=== PATIENT | male | born 1950 | race Caucasian/White ===

== ENCOUNTER → 2016-09-14 | Outpatient (CLI) | payer BC | LOC: FIMAGING 10:36 | PROVIDERS: ATTEND Radiology Diagnostic Radiology | DX: L97.821 Non-pressure chronic ulcer of other part of left lower leg limited to breakdown of skin (principal); L97.811 Non-pressure chronic ulcer of other part of right lower leg limited to breakdown of skin; L03.115 Cellulitis of right lower limb; L03.116 Cellulitis of left lower limb; R60.0 Localized edema ==

== ENCOUNTER 2016-11-01 07:22 | Day surgery (SDC) | payer BC ==
[2016-11-01] MEDS ORDERED: SODIUM TETRADECYL SULFATE 60 MG/2 ML VIAL IV ONE ×2 (08:04→08:19)
[2016-11-01] MEDS ORDERED: LIDO/EPI 1% **for epidural** 30 ML SDV ONE (08:04)
[2016-11-01] MEDS ORDERED: MIDAZOLAM 2 MG/2 ML VIAL ONE (09:30)
[2016-11-01] MEDS ORDERED: fentaNYL 100 MCG/2 ML INJ ONE (09:30)
[2016-11-01] MEDS ORDERED: NS 1,000 ML IV ONE (10:31)
[2016-11-01] MEDS ORDERED: ONDANSETRON 4 MG/2 ML VIAL IVP ONE (10:31)
[2016-11-01] MEDS ORDERED: ceFAZolin 2 GM/DEXTROSE 100 ML IV ONE (10:31)
[2016-11-01] MEDS ORDERED: HYDROCODONE/APAP 5/325 TAB PO PRN (11:00)
[2016-11-01] MEDS ORDERED: NS 1,000 ML IV SCH (11:00)
[2016-11-01] MEDS ORDERED: ONDANSETRON DISINTEGRATING 4 MG TAB PO PRN (11:00)
[2016-11-01] MEDS ORDERED: ONDANSETRON 4 MG/2 ML VIAL IVP PRN (11:00)
[2016-11-01] MEDS ORDERED: IBUPROFEN 200 MG TAB PO ONE (11:00)
== END 2016-11-01 11:20 | disposition home or self-care (01) ==
LOC: FIMAGING 07:22
PROVIDERS: ATTEND Radiology Diagnostic Radiology
PROC: 065P3ZZ Destruction of Right Saphenous Vein, Percutaneous Approach (ICD-10-PCS; principal; 2016-11-01 10:40)
DX: I83.019 Varicose veins of right lower extremity with ulcer of unspecified site (principal); I83.029 Varicose veins of left lower extremity with ulcer of unspecified site; L03.115 Cellulitis of right lower limb; L03.116 Cellulitis of left lower limb
CPT/HCPCS: J0690; J2250; J3010

== ENCOUNTER 2016-11-02 07:25 | Day surgery (SDC) | payer BC ==
[2016-11-02] MEDS ORDERED: SODIUM TETRADECYL SULFATE 60 MG/2 ML VIAL IV ONE (07:54)
[2016-11-02] MEDS ORDERED: LIDO/EPI 1% **for epidural** 30 ML SDV ONE (07:55)
[2016-11-02] MEDS ORDERED: fentaNYL 100 MCG/2 ML INJ ONE (08:47)
[2016-11-02] MEDS ORDERED: MIDAZOLAM 2 MG/2 ML VIAL ONE (08:48)
[2016-11-02] MEDS ORDERED: HYDROCODONE/APAP 5/325 TAB PO PRN (11:03)
[2016-11-02] MEDS ORDERED: ONDANSETRON DISINTEGRATING 4 MG TAB PO PRN (11:04)
[2016-11-02] MEDS ORDERED: ONDANSETRON 4 MG/2 ML VIAL IVP PRN (11:05)
[2016-11-02] MEDS ORDERED: IBUPROFEN 200 MG TAB PO ONE (11:30)
== END 2016-11-02 11:55 | disposition home or self-care (01) ==
LOC: FIMAGING 07:25
PROVIDERS: ATTEND Radiology Diagnostic Radiology
PROC: 065Q3ZZ Destruction of Left Saphenous Vein, Percutaneous Approach (ICD-10-PCS; principal; 2016-11-02 10:42)
DX: I83.209 Varicose veins of unspecified lower extremity with both ulcer of unspecified site and inflammation (principal)
CPT/HCPCS: 36470; 36473; 99152; 99153; C1758; C1769; J1644; J2250; J3010

== ENCOUNTER → 2017-07-12 | Outpatient (CLI) | payer BC ==
[~2017-07-12] MED LIST: IOPAMIDOL (ISOVUE 370) 100 ML BTL IV ONE
== END ==
LOC: CIMAGING 14:36
PROVIDERS: ATTEND Family Medicine
DX: I71.4 Abdominal aortic aneurysm, without rupture (principal); I74.3 Embolism and thrombosis of arteries of the lower extremities; R79.89 Other specified abnormal findings of blood chemistry
CPT/HCPCS: 75635-PO; Q9967

== ENCOUNTER 2017-09-09 06:47 | Inpatient (IN) | payer OTHER, BC ==
[2017-09-09] MEDS ORDERED: BUPIVACAINE 0.5% 30 ML SDV ONE (07:32)
[2017-09-09] MEDS ORDERED: THROMBIN (BOVINE) 20,000 UNIT VIAL TP ONE (07:32)
[2017-09-09] MEDS ORDERED: LR 1,000 ML IV ONE ×2 (07:33→08:04)
[2017-09-09] MEDS ORDERED: LIDOCAINE 1% 2 ML INJ ONE (08:02)
[2017-09-09] MEDS ORDERED: ALTEPLASE 2 MG VIAL IVP PRN (08:04)
[2017-09-09] MEDS ORDERED: GLUCAGON HCL 1 MG VIAL IVP PRN (08:04)
[2017-09-09] MEDS ORDERED: MIDAZOLAM 2 MG/2 ML VIAL IVP PRN (08:04)
[2017-09-09] MEDS ORDERED: HEPARIN 10,000 UNIT/10 ML MDV (1,000 UNIT/ML) IVP PRN (08:04)
[2017-09-09] MEDS ORDERED: NALOXONE HCL 0.4 MG/ML INJ IVP PRN ×2 (08:04→12:05)
[2017-09-09] MEDS ORDERED: ceFAZolin 2 GM/SWFI 2 GM/20 ML SYR IVP ONE (08:04)
[2017-09-09] MEDS ORDERED: MEPERIDINE 25 MG/ML SYR IVP PRN (08:04)
[2017-09-09] MEDS ORDERED: FLUMAZENIL 0.5 MG/5 ML MDV IVP PRN (08:04)
[2017-09-09] MEDS ORDERED: fentaNYL 100 MCG/2 ML INJ IVP PRN ×2 (08:04→12:05)
[2017-09-09] MEDS ORDERED: PROTAMINE SULFATE 50 MG/5 ML VIAL IVP PRN (08:04)
[2017-09-09] MEDS ORDERED: IOPAMIDOL (ISOVUE-300) 100 ML BTL ONE ×2 (08:15→11:40)
--- NOTE | 2017-09-09 08:53 | PDGENHP ---
History & Physical Chief Complaint: AAA History of Present Illness: ENLARGING AAA. NON-RUPTURE. Pertinent Past, Social, Family History: VENOUS HYPERTENSION, HLD, HTN Relevant Physical Exam: NOT IN DISTRESS. NO CHANGE FROM PREVIOUS VISIT. Cardiorespiratory Assessment: RRR, CTA
[2017-09-09 09:15] LABS: INR 0.91 (0.83-1.16); PROTIME(PATIENT) 12.5 SEC (12.0-15.0)
[2017-09-09] MEDS ORDERED: MIDAZOLAM 2 MG/2 ML VIAL IVP ONE (09:19)
--- NOTE | 2017-09-09 09:19 | PDANEPAE ---
ANE History of Present Illness AAA for endovascular repair ANE Past Medical History - Cardiovascular History Hx Hypertension: Yes Hx Arrhythmias: No Hx Chest Pain: No Hx Coronary Artery / Peripheral Vascular Disease: Yes Hx CHF / Valvular Disease: No Hx Palpitations: No Cardiovascular History Comment: hyperlipidemia. venous htn to ble. AAA - Pulmonary History Hx COPD: No Hx Asthma/Reactive Airway Disease: No Hx Recent Upper Respiratory Infection: No Hx Oxygen in Use at Home: No Hx Sleep Apnea: No Sleep Apnea Screening Result - Last Documented: Positive Pulmonary History Comment: agata triggers - Neurologic History Hx Cerebrovascular Accident: No Hx Seizures: No Hx Dementia: No Neurologic History Comment: found AAA on MRI when he went in for back pain. 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 creat was high so he was unable to have iodine - Liver History Hx Hepatic Disorders: No - Neurological & Psychiatric Hx Hx Neurological and Psychiatric Disorders: No - Cancer History Hx Cancer: No - Congenital Disorder History Hx Congenital Disorders: No - GI History GERD: moderate Hx Gastrointestinal Disorders: Yes Gastrointestinal History Comment: occ reflux- uses nexium - Other Health History Other Health History: redness to ble from past cellulitis - Chronic Pain History Chronic Pain: Yes (back pain) - Surgical History Prior Surgeries: right knee replacement. right ankle replacement. bilateral carpel tunnel. RTC bilateral shoulders ANE Review of Systems Review of systems is: negative Review of Systems: - Exercise capacity METS (RN): 4 METS ANE Patient History - Allergies Allergies/Adverse Reactions: No Known Allergies Allergy (Verified 09/06/17 15:51) - Home Medications Home medications: home medication list seen and reviewed Home Medications: Celebrex 10/26/16 [Last Taken Unknown] Lasix 10/26/16 [Last Taken Unknown] Lipitor 10/26/16 [Last Taken Unknown] Nexium PRN 10/26/16 [Last Taken Unknown] - NPO status NPO Since - Liquids (Date): 09/08/17 NPO Since - Solids (Date): 09/08/17 - Anes Hx Anes Hx: no prior problems - Smoking Hx Smoking Status: Former smoker ANE Labs/Vital Signs - Labs Result Diagrams: 09/09/17 08:10 09/09/17 08:10 - Vital Signs Height: 167.64 cm Weight: 108.862 kg ANE Physical Exam - Airway Neck exam: FROM Mallampati Score: Class 1 Mouth exam: normal dental/mouth exam - Pulmonary Pulmonary: no respiratory distress - Cardiovascular Cardiovascular: regular rate and rhythym - ASA Status ASA Status: III ANE Anesthesia Plan Anesthesia Plan: general endotracheal anesthesia Lines/Monitors: arterial line Specialized Airway: video laryngoscope
[2017-09-09] MEDS ORDERED: PROPOFOL 200 MG/20 ML VIAL ONE ×2 (09:21)
[2017-09-09] MEDS ORDERED: fentaNYL 250 MCG/5 ML INJ ONE (09:21)
[2017-09-09] MEDS ORDERED: LIDOCAINE 2% 5 ML SDV ONE (09:26)
[2017-09-09] MEDS ORDERED: PHENYLEPHRINE 10 MG/ML SDV ONE (09:27)
[2017-09-09 10:43] LABS: PLATELET COUNT 183 10^3/uL (150-400)
[2017-09-09] MEDS ORDERED: LIDOCAINE 2% 100 MG/5 ML SYR ONE (11:59)
[2017-09-09] MEDS ORDERED: ONDANSETRON 4 MG/2 ML VIAL ONE (11:59)
[2017-09-09] MEDS ORDERED: SUGAMMADEX SODIUM 200 MG/2 ML VIAL IVP ONE (11:59)
[2017-09-09] MEDS ORDERED: ROCURONIUM 100 MG/10 ML VIAL ONE (11:59)
[2017-09-09] MEDS ORDERED: HYDROCODONE/APAP 5/325 TAB PO PRN (12:05)
[2017-09-09] MEDS ORDERED: LR 500 ML IV PRN (12:05)
[2017-09-09] MEDS ORDERED: OXYCODONE/APAP 5/325 TAB PO PRN (12:05)
[2017-09-09] MEDS ORDERED: PHENYLEPHRINE HCL 100 MCG/ML SYR IVP PRN (12:05)
[2017-09-09] MEDS ORDERED: ALBUTEROL 3 ML DEYVIAL IH PRN (12:05)
[2017-09-09] MEDS ORDERED: ONDANSETRON 4 MG/2 ML VIAL IVP PRN ×2 (12:05→13:35)
[2017-09-09] MEDS ORDERED: HYDROmorphONE/DILAUDID 1 MG/ML INJ IVP PRN (12:05)
[2017-09-09] MEDS ORDERED: ACETAMINOPHEN 500 MG TAB PO PRN (12:05)
[2017-09-09] MEDS ORDERED: PROMETHAZINE HCL 25 MG/ML INJ IVP PRN (12:05)
[2017-09-09] MEDS ORDERED: DEXAMETHASONE 4 MG/ML VIAL IVP PRN (12:05)
[2017-09-09] MEDS ORDERED: LABETALOL HCL 5 MG/ML 20 ML MDV IVP PRN (12:05)
--- NOTE | 2017-09-09 12:05 | POSTANESTH ---
Post Anesthetic Evaluation Cardiovascular Status: Normal, Stable Respiratory Status: Normal, Stable Level of Consciousness/Mental Status: Can Participate in Eval Pain Control: Adequate, Prn Tx Ordered Nausea/Vomiting Control: Adequate, Prn Tx Ordered Complications Possibly Related to Anesthesia: None Noted
[2017-09-09] MEDS: OXYCODONE/APAP 5/325 TAB PO PRN ×2 (14:15→20:56)
--- NOTE | 2017-09-09 14:54 | PDRADPN ---
Radiology Procedure Note Date of Procedure: 09/09/17 Radiologist: Carol Mcneil Anesthesia: GET(General Endotracheal) Pre-op Diagnosis: AAA Post-op Diagnosis: SAME Indication: ENLARGING AAA Procedure: ENDOVASCULAR STENTGRAFT REAPIR Finding(s): THREE PIECE STENTGRAFT PLACED. AAA EXCLUDED. Inf/Abcess present in the surg proc area at time of surgery?: No Complications: NONE IMMEDIATELY. Drains: Other (RT 7FR ARTERIAL SHEATH SUTURED IN PLACE.)
[2017-09-09] MEDS ORDERED: ALBUTEROL 3 ML DEYVIAL ONE (16:00)
[2017-09-09 16:19] VITALS: TEMP 98.1
--- NOTE | 2017-09-09 19:45 | SOAPPROG ---
STEFANIE Progress Note Assessment/Plan: Assessment: Doing well post perc AAA stentgraft repair. Plan: 1. Keep [place] tonight 2. Start to sit up slowly tonight. Goal is in chair tomorrow am. 3. Anticipate D/C [place] in am. 09/09/17 19:44 Subjective: No complaints Objective: Vital Signs Temp Pulse Resp BP Pulse Ox 36.7 C 80 20 122/65 H 94 09/09/17 16:00 09/09/17 18:00 09/09/17 18:00 09/09/17 18:00 09/09/17 18:00 Laboratory Results 09/09/17 10:24 09/09/17 08:10 09/08/17 09/09/17 09/10/17 05:59 05:59 05:59 Intake Total 2130 Output Total 1080 Balance 1050 PT 12.5 SEC (12.0-15.0) 09/09/17 08:10 INR 0.91 (0.83-1.16) 09/09/17 08:10 No hematoma at femoral accesses. Palpable pedal pulses. ICD10 Worksheet Patient Problems: Problems Problem Status Onset AAA (abdominal aortic aneurysm) without rupture Acute - ICD10 Problem Qualifiers (1) AAA (abdominal aortic aneurysm) without rupture
[2017-09-09] MEDS: ROSUVASTATIN CALCIUM 40 MG TAB PO SCH (20:55)
[2017-09-09] MEDS: LISINOPRIL 20 MG TAB PO SCH (20:55)
[2017-09-09] MEDS: METOPROLOL SUCCINATE XR 25 MG TAB PO SCH (20:56)
[2017-09-10 05:57] LABS: PLATELET COUNT 189 10^3/uL (150-400)
[2017-09-10] MEDS ORDERED: FUROSEMIDE 20 MG TAB PO SCH (09:00)
[2017-09-10] MEDS: ROSUVASTATIN CALCIUM 40 MG TAB PO SCH (09:26)
[2017-09-10] MEDS: LISINOPRIL 20 MG TAB PO SCH (09:26)
[2017-09-10] MEDS: METOPROLOL SUCCINATE XR 25 MG TAB PO SCH (09:44)
--- NOTE | 2017-09-10 09:44 | SOAPPROG ---
SOAP Progress Note Assessment/Plan: Assessment: Doing well post perc AAA stentgraft repair. Plan: 1. Keep [place] tonight 2. Start to sit up slowly tonight. Goal is in chair tomorrow am. 3. Anticipate D/C [place] in am. 09/09/17 19:44 09/10/17 09:43 D/C [place]. May D/C home once able to urinate. IR will call patient for CTA follow up in next 3-6 months. This was discussed with patient. Subjective: Sitting in chair. No complaints. Objective: Vital Signs Temp Pulse Resp BP Pulse Ox 36.7 C 50 L 17 92/49 L 97 09/09/17 16:00 09/10/17 06:00 09/10/17 06:00 09/10/17 06:00 09/10/17 06:00 Laboratory Results 09/10/17 05:30 09/09/17 08:10 09/09/17 09/10/17 09/11/17 05:59 05:59 05:59 Intake Total 2380 Output Total 1730 Balance 650 PT 12.5 SEC (12.0-15.0) 09/09/17 08:10 INR 0.91 (0.83-1.16) 09/09/17 08:10 Dressings changed. No hematoma. Pulses stable. Abd NT - Pending Discharge Pending Discharge Within 24 Hours: Yes Pending Discharge Date: 09/11/17 Pending Discharge Time: 11:00 ICD10 Worksheet Patient Problems: Problems Problem Status Onset AAA (abdominal aortic aneurysm) without rupture Acute - ICD10 Problem Qualifiers (1) AAA (abdominal aortic aneurysm) without rupture
[2017-09-10] MEDS ORDERED: PNEUMOC 13-VAL CONJ-DIP CRM/PF 0.5 ML SYR IM ONE ×2 (09:48→13:30)
[2017-09-10 12:57] VITALS: BP 105/49; PULSE 57; RESP 18; O2SAT 94
== END 2017-09-10 14:29 | disposition home or self-care (01) | DRG 269 ==
LOC: FIMAGING 06:47 → F2N 12:40 → OBSVTOIN 13:35
PROVIDERS: ADMIT Radiology Diagnostic Radiology; ATTEND Radiology Diagnostic Radiology
PROC: 04V03D6 (ICD-10-PCS; principal; 2017-09-09 08:30)
DX: I71.4 Abdominal aortic aneurysm, without rupture (principal); I10 Essential (primary) hypertension; E78.5 Hyperlipidemia, unspecified; I87.303 Chronic venous hypertension (idiopathic) without complications of bilateral lower extremity; G47.33 Obstructive sleep apnea (adult) (pediatric); Z96.651 Presence of right artificial knee joint; Z96.661 Presence of right artificial ankle joint; Z87.891 Personal history of nicotine dependence
CPT/HCPCS: C1725; C1769; C1874; C1894; G0009; J0690; J1644; J2001; J2370; J2405; J2704; J3010; J7613; Q9967

== ENCOUNTER → 2018-05-10 | Outpatient (CLI) | payer BC | LOC: CIMAGING 11:50 | PROVIDERS: ATTEND Radiology Diagnostic Radiology | DX: I71.4 Abdominal aortic aneurysm, without rupture (principal) | CPT/HCPCS: 82565-PO; Q9967 ==

== ENCOUNTER → 2018-11-29 | Outpatient (CLI) | payer BC | LOC: FIMAGING 12:09 | PROVIDERS: ATTEND Radiology Diagnostic Radiology | DX: I71.4 Abdominal aortic aneurysm, without rupture (principal); Z95.820 Peripheral vascular angioplasty status with implants and grafts | CPT/HCPCS: 82565-PO; Q9967 ==